=== PATIENT | female | born 1960 | race Caucasian/White ===

== ENCOUNTER 2017-06-17 09:27 | Outpatient (CLI) | payer OTHER ==
[~2017-06-17] VITALS: Ht 157.5 cm; Wt 62.1 kg
[2017-06-17 09:30] VITALS: BP 125/67
--- NOTE | 2017-06-17 20:00 | Consultation ---
DATE OF CONSULTATION: 06/17/2017 CHIEF COMPLAINT: Elevated CA-19-9 and elevated lipase. HISTORY OF PRESENT ILLNESS: The patient is a very pleasant 57-year-old female with multiple other medical problems was referred to us given she had elevated lipase, elevated CA-19-9, and she was referred to us for evaluation for that. The patient also had a CT scan of the abdomen and pelvis, done in another facility. The CT showed no common bile duct dilatation. The patient had multiple small lesions in the liver, most probably cysts, maybe also a hemangioma in the liver. Gallbladder was unremarkable. In the tail of the pancreas, there was an area of lucency, proximal to which there is a moderate distention of the pancreatic duct. There does not appear to be any significant inflammatory changes surrounding the pancreas. The duct in the body and pancreatic head is unremarkable. Spleen and adrenal gland are unremarkable. The patient's liver function was normal. Lipase was elevated at 96, and CA 19-9 elevated at also 96. Talking to the patient, apparently she started having abdominal pain for about a month ago. This abdominal pain is mostly generalized. No specific points of pain. The pain is not severe, mild. Maximum, the pain is moderate pain. There is no associated nausea or vomiting. No diarrhea. No constipation. No blood in the stool. The pain is, she cannot say it is food related, but she said sometimes she feels it is worse after eating, not classical for pancreatitis pain with radiation to the back. Sometimes, the pain goes with epigastric area, but again overall a diffuse abdominal pain. The pain woke her up one time at night. She had an endoscopy and colonoscopy in 2013 and apparently according to her report, there were one or two polyps. Otherwise, there were no obvious findings. She denies any rectal bleeding. She denies any weight loss. Of note, the patient smokes. She used to be a heavy smoker, now she smokes about 8 to 10 cigarettes per day. Also drinks 2-3 glasses of wine. No family history of GI malignancies. PAST MEDICAL HISTORY: Significant for, 1. History of colonic polyps. 2. Hemorrhoids. ALLERGIES: No known drug allergies. MEDICATIONS: Please see medication reconciliation list. FAMILY HISTORY: No family history of GI malignancies. SOCIAL HISTORY: She smokes 8 to 10 cigarettes per day. Drinks two or three glasses of wine. No IV drug abuse. REVIEW OF SYSTEMS: A 10-point review of systems was performed and pertinent positives in HPI. PHYSICAL EXAMINATION: GENERAL: A well-developed female. VITAL SIGNS: Temperature is 97.8 degrees, pulse is 75, and blood pressure is 125/67. Height is 5 feet 2 inches and weight is 137. HEENT: Normocephalic. Mild pale conjunctivae. NECK: Supple. No evidence of lymphadenopathy. CARDIOVASCULAR: Regular rhythm. Plus S1 and S2. LUNGS: Decreased breath sounds bilaterally. ABDOMEN: Soft. Bowel sounds are present. There is minimal tenderness to palpation in the epigastric area. No rebound. No guarding. No peritoneal sign. EXTREMITIES: No cyanosis. No clubbing. No edema. ASSESSMENT AND PLAN: The patient is a very pleasant 57-year-old female with a nonspecific abdominal pain, mildly elevated lipase of 96, mildly elevated CA-19-[address] showed no obvious pancreatic head or body mass. There is little bit of dilatation of the pancreatic duct in the tail. Our recommendation for the patient was to stop alcohol altogether. Also, we recommended her stop smoking, but she says she cannot do that. Basically, she cannot quit smoking, but she says she is going to try to stop drinking alcohol altogether. We recommended to repeat the CA 19-9 and lipase after she is off of alcohol for at least a month to see if that will change the numbers. We also recommended the patient to have endoscopic ultrasound for evaluation of this focal pancreatic duct dilatation in the tail. She said that she does not want to have it done at [place]. She is going to try to find with insurance to see if she can get it done at [facility] by Dr. Jose Carlos Rene. So, we respect her wishes, we stated, want to try with the insurance. If they approve you to have it done at [facility] by Dr. Jose Carlos Rene, you are more than welcome to have it done there. Otherwise, we will be able to do her endoscopic ultrasound at [place] to figure out what is cause of this focal dilation of the pancreatic duct in the tail. Meanwhile, again we recommended her to stop drinking and smoking and have a repeat lipase and CA-19-9. Roscoe Sarah Quesada DR: JAZ JOB#: [id number] CC:
[2017-06-19] MEDS ORDERED: LIPITOR40 MG ORAL (12:46)
== END 2017-06-17 10:00 | disposition home or self-care (01) ==
LOC: PAN 09:27
DX: R74.8 Abnormal levels of other serum enzymes (principal); F17.210 Nicotine dependence, cigarettes, uncomplicated; Z86.010 Personal history of colon polyps
CPT/HCPCS: 99201

== ENCOUNTER 2017-06-20 08:27 | Day surgery (SDC) | payer OTHER ==
[~2017-06-20] VITALS: Ht 157.5 cm; Wt 61.2 kg
[2017-06-20] VITALS (8 sets, daily range): BP systolic 115–137; BP diastolic 39–76
[~2017-06-20 08:27] MED LIST: LIPITOR40 MG ORAL
--- NOTE | 2017-06-20 10:11 | Pre-Procedure Note/Attestation ---
Pre-Procedure Note/Attestation Complete Prior to Procedure Planned Procedure: not applicable Procedure Narrative: eus Indications for Procedure Pre-Operative Diagnosis: pancreatitis Attestation I attest that I discussed the nature of the procedure; its benefits; risks and complications; and alternatives (and the risks and benefits of such alternatives ), prior to the procedure, with the patient (or the patient's legal sales representative). I attest that, if there was a reasonable possibility of needing a blood transfusion, the patient (or the patient's legal sales representative) was given the [facility] standardized written summary, pursuant to the [place] Blood Safety Act ([place] Health and Safety Code # 1645, as amended). I attest that I re-evaluated the patient just prior to the surgery and that there has been no change in the patient's H&P, except as documented below: HAVEN AGUIRRE Jun 20, 2017 10:11
--- NOTE | 2017-06-20 10:12 | Short Stay Surgery H&P ---
History of Present Illness History of Present Illness Chief Complaint see recent consult note HPI Veronica Ma is a 57 year old female who was admitted on for Lower Abdominal Pain Patient History Allergies: Coded Allergies: No Known Allergies (Unverified , 06/19/17) PAST MEDICAL HISTORY: Past Surgeries: Social History: Medication History Scheduled Atorvastatin Calcium* (Lipitor*), 40 MG ORAL BEDTIME, (Reported) Plan Attestation Are the patient's medical conditions optimized for surgery? HAVEN AGUIRRE Jun 20, 2017 10:12
[2017-06-20] MEDS ORDERED: MAGNESIUM400 M2 PO (11:03)
[2017-06-20] MEDS ORDERED: Heplock Flush 100 units/ml 3 ml syr ONE (12:55)
[2017-06-20] MEDS ORDERED: Heplock Flush 100 units/ml 3 ml syr IV ONE (13:00)
--- NOTE | 2017-06-20 13:33 | Endoscopy Procedure Note ---
Endoscopy Procedure Note General Indication for Procedure: pancreatitis Procedures Performed: other - EUS Operative Findings/Diagnosis: dilated PD Specimen: yes Pt Tolerated Procedure Well: Yes Estimated Blood Loss: none Anesthesia Anesthesiologist: billy Anesthesia: MAC Inserted Devices Implant(s) used?: No GI Core Measures 50 yrs or older w/o bx or poly: Not Applicable 10yrs. F/U not recommended: Not Applicable HAVEN AGUIRRE Jun 20, 2017 13:33
[2017-06-20] MEDS ORDERED: fentaNYL 100 mcg/2 mL IV ONE (13:44)
--- NOTE | 2017-06-20 13:44 | Immediate Post-Op Evaluation ---
Immediate Post-Op Evalulation Immediate Post-Op Evalulation Procedure: EUS Date of Evaluation: Jun 20, 2017 Time of Evaluation: 13:43 IV Fluids: 1000 Blood Pressure Systolic: 120 Blood Pressure Diastolic: 46 Pulse Rate: 65 Respiratory Rate: 14 O2 Sat by Pulse Oximetry: 99 Temperature (Fahrenheit): 97.3 Nausea: No Vomiting: No Complications none Patient Status: awake, reacts, patent Hydration Status: adequate Drug: none CHINO BRANNON CRNA Jun 20, 2017 13:43
[2017-06-20] MEDS ORDERED: fentaNYL 100 mcg/2 mL IV PRN (13:45)
--- NOTE | 2017-06-20 14:47 | 48 Hour Post Anesthesia Eval ---
Post Anesthesia Evaluation Procedure: EUS Date of Evaluation: Jun 20, 2017 Time of Evaluation: 14:46 Blood Pressure Systolic: 130 0: 49 Pulse Rate: 70 Respiratory Rate: 14 O2 Sat by Pulse Oximetry: 99 Airway: patent Nausea: No Vomiting: No Hydration Status: adequate Cardiopulmonary Status: stable Mental Status/LOC: patient returned to baseline Follow-up Care/Observations: na Post-Anesthesia Complications: none Follow-up care needed: N/A CHINO BRANNON CRNA Jun 20, 2017 14:47
--- NOTE | 2017-06-20 14:48 | Anethesia Preoperative Eval ---
Anesthesia Pre-op PMH/ROS General Date of Evaluation: Jun 20, 2017 Time of Evaluation: 12:30 Anesthesiologist: kristyn ASA Score: ASA 2 Mallampati Score Class I : Soft palate, uvula, fauces, pillars visible Class II: Soft palate, uvula, fauces visible Class III: Soft palate, base of uvula visible Class IV: Only hard plate visible Mallampati Classification: Class II Surgeon: jerad Diagnosis: pancreatic lesion Surgical Procedure: EUS Anesthesia History: none Family History: no anesthesia problems Allergies: Coded Allergies: No Known Allergies (Unverified , 06/20/17) Medications: see eMAR Past Medical History Cardiovascular: Denies: HTN, CAD, SD, valve dz, arrhythmia, other Pulmonary: Denies: asthma, COPD, EMRE, other Gastrointestinal/Genitourinary: Denies: GERD, CRI, ESRD, other Neurologic/Psychiatric: Denies: dementia, CVA, depression/anxiety, TIA, other Endocrine: Denies: DM, hypothyroidism, steroids, other HEENT: Denies: cataract (L), cataract (R), glaucoma, [place] (L), [place] (R), other Hematology/Immune: Denies: anemia, DVT, bleeding disorder, other Musculoskeletal/Integumentary: Denies: OA, RA, DJD, DDD, edema, other PMH Narrative: pancreatic lesion Anesthesia Pre-op Phys. Exam Physician Exam Last Vital Signs Date Time Temp Pulse Resp B/P (MAP) Pulse Ox O2 Delivery O2 Flow Rate FiO2 06/20/17 14:16 97.0 59 16 130/49 98 Room Air 97.0 06/20/17 13:45 3.0 Constitutional: NAD Neurologic: CN 2-12 intact Cardiovascular: RRR Respiratory: CTA Gastrointestinal: S/NT/ND Airway Exam Mallampati Score: Class II MO: full ROM: full Dentures: no upper, no lower Anesthesia Pre-op A/P Labs Coagulation Test 06/20/17 11:11 Prothrombin Time 10.7 SEC (9.30-11.50) Prothromb Time International Ratio 1.0 (0.9-1.1) Activated Partial Thromboplast Time 30 SEC (23-33) Studies Pre-op Studies: EKG - sr Risk Assessment & Plan Plan: mac Status Change Before Surgery: No Pre-Antibiotics Drug: none TARRILLION,CHINO SMOKING PIPE COATER Jun 20, 2017 14:48
--- NOTE | 2017-06-20 20:45 | Procedure Note ---
DATE OF PROCEDURE: 06/20/2017 SURGEON: Roscoe Quesada M.D. PROCEDURE: EUS with core needle biopsy. ANESTHESIA: Per JASON, Gunjan Mishra. INSTRUMENT: Olympus adult flexible EUS scope, both radial and linear. INDICATION: Dilated pancreatic duct in the tail of the pancreas on the CAT scan. The procedure, risks, benefits, and possible consequences, including hemorrhage, aspiration, perforation and infection, and alternative treatments, were explained to the patient/legal guardian by Dr. Roscoe Quesada and the patient/legal guardian understood and accepted these risks. DESCRIPTION OF PROCEDURE: After informed consent was obtained and the patient was adequately sedated, the EUS scope was advanced from mouth into the esophagus. Starting scanning at GE junction, first distal celiac axis without any obvious celiac axis lymphadenopathy. There was a left adrenal gland, which was clearly seen without any adenoma or any pathology on the left adrenal gland. Then, we saw the body and tail of the pancreas where the scope was kept in the stomach. There was evidence of dilated pancreatic duct in the tail of the pancreas, measured roughly about 5 mm. We found a focal area of hypoechoic area and measured roughly about 3 cm, and the duct was dilated more proximal to this area suggesting that this area is causing some kind of pancreatic duct blockage and dilation of the tail of the pancreatic duct. This lesion again measured 3 cm and was hypoechoic. Then, the scope was advanced into the antrum of the stomach, duodenal bulb, and second portion of duodenum where the head and uncinate process were examined. There was no evidence of any common bile duct. No pancreatic duct dilatation in the head. There was no evidence of any pathology in the head or uncinate process of the pancreas. At this time, the EUS radial scope was removed and linear scope was introduced for FNA. A 22-gauge core needle biopsy was used to do three passes in this hypoechoic area in the tail/body of the pancreas. As I mentioned, three passes was performed and the tissue was obtained and sent to the pathology for evaluation. The patient tolerated the procedure very well without any complication. SUMMARY OF FINDINGS: 1. A 3 cm hypoechoic lesion in the body/tail of the pancreas with associated pancreatic duct dilation in the tail of the pancreas for about 5 mm. Otherwise, the rest of the exam grossly normal. 2. Status post core needle biopsy using 22-gauge needle x3. RECOMMENDATIONS: Follow FNA results and treat accordingly. Roscoe Quesada M.D. DR: JAZ JOB#: [id number] CC:
[2017-06-22] MEDS ORDERED: Lidocaine 1% MPF 10mg/ml 5ml ONE (12:30)
[2017-06-22] MEDS ORDERED: Propofol 200mg/20ml IV ONE (12:30)
[2017-06-22] MEDS ORDERED: LR 1000ml ONE (12:30)
--- NOTE | 2017-06-25 20:21 | Cardiology Report ---
APPROVED REPORT EKG Measurement Heart [id number] NM [id number] Sinus bradycardia Otherwise normal ECG
== END 2017-06-20 14:50 | disposition home or self-care (01) ==
LOC: GAS 08:27
DX: K86.9 Disease of pancreas, unspecified (principal); R10.30 Lower abdominal pain, unspecified
CPT/HCPCS: 36415; 43242; 85610; 85730; 93005; J1642; J2405; J3010; 94003; 94150